=== PATIENT | female | born 1985 | race Caucasian/White ===

== ENCOUNTER 2019-07-17 15:50 | Outpatient (CLI) | payer MEDICAID ==
[~2019-07-17] VITALS: Ht 157 cm; Wt 59.0 kg
[~2019-07-17 15:50] MED LIST: ACHD5005 PO; ACYC800T PO; CETI10CA PO; CODE-54 PO; D50KC PO; DCS100C PO; DEXL60CA PO; DIVA125T2 PO; DULO60CA6 PO; FERR-57 PO; HYDR-3730 PO; IBP600T1 PO; LANS15CA PO; LANS30CA PO; LEVO750T24 PO; LO/OVRAL; METR500T PO; ONDA-43 PO; PANT40SU PO; PREG25CA PO; PREG75CA PO; PREN1TAB19 PO; PRM25T PO; SMT80CT PO; SUCR1TAB36 PO; TMZP15C PO; TOPI15CA6 PO
[2019-07-17 16:00] VITALS: BP 110/72
[2019-07-17] MEDS ORDERED: NS IV 1000 ML 1,000 ML ONE (16:08)
[2019-07-17] MEDS ORDERED: NS IV 1000 ML 1,000 ML IV ONE (16:15)
[2019-07-17] MEDS ORDERED: DIPHENOXYLATE/ATROPINE 2.5MG/0.025MG (LOMOTIL) TAB PO NR (16:30)
[2019-07-17] MEDS ORDERED: metroNIDAZOLE 500 MG/100 ML IVPB (PRE-MIX) IV ONE (16:30)
[2019-07-17] MEDS ORDERED: NS IV 1000 ML 1,000 ML IV SCH (16:30)
[2019-07-17 16:42] LABS: BUN/CREATININE RATIO 7; CALCIUM 8.9 MG/DL (8.5-10.1); CARBON DIOXIDE 18 MMOL/L (21-32); CHLORIDE 109 MMOL/L (98-107); CREATININE SERUM 0.82 MG/DL (0.60-1.30); GFR ESTIMATED > 60; GLUCOSE 107 MG/DL (70-105); POTASSIUM 3.2 MMOL/L (3.6-5.0); SODIUM 137 MMOL/L (135-145)
[2019-07-17 18:45] VITALS: BP 110/72
== END 2019-07-17 18:50 | disposition home or self-care (01) ==
LOC: SDC 15:50
PROVIDERS: ATTEND Nurse Practitioner Family
DX: R19.7 Diarrhea, unspecified (principal)
CPT/HCPCS: 36415; 80048; 83735; 96361; 96365

== ENCOUNTER → 2019-12-19 | Outpatient (CLI) | payer MEDICAID ==
--- NOTE | 2019-12-19 14:05 | Diagnostic Imaging Report ---
EXAMINATION: Chest 2 view HISTORY: Cough. Shortness of breath. Congestion for one week. COMPARISON: Chest radiograph on 03/09/2014. FINDINGS: The lung volumes are normal. No focal consolidation is seen. Scarring/atelectasis is seen in the left lung base. No large pleural effusion or pneumothorax is seen. The cardiomediastinal silhouette is normal in size and contour. No acute osseous abnormality is seen. IMPRESSION: 1. Small amount of scarring/atelectasis in the left lung base. No focal consolidations. Dictated by: Dictated on workstation # [id number]
== END ==
LOC: RAD 11:57
PROVIDERS: ATTEND Nurse Practitioner Family
DX: R05 Cough (principal); R06.00 Dyspnea, unspecified; R06.02 Shortness of breath
CPT/HCPCS: 71046

== ENCOUNTER 2022-07-03 13:37 | Emergency (ER) | payer MEDICAID ==
[~2022-07-03] VITALS: Ht 157.4 cm; Wt 59.0 kg
[2022-07-03 13:48] VITALS: BP 131/105
[2022-07-03] MEDS ORDERED: PROCHLORPERAZINE 10 MG/2ML INJ (COMPAZINE) IV STA (14:01)
[2022-07-03] MEDS ORDERED: diphenhydrAMINE 50 MG/ML INJ (BENADRYL) IVP STA (14:01)
[2022-07-03] MEDS ORDERED: KETOROLAC 30 MG/ML VIAL IVP STA (14:01)
--- NOTE | 2022-07-03 14:08 | ED Headache ---
General Chief Complaint: Head/Cervical Problems Stated Complaint: VOMITING/NAUSEA/MIGRAINE History of Present Illness Date Seen by Provider: Jul 03, 2022 Time Seen by Provider: 13:50 Initial Comments 36-year-old female presents for 2-day history of migraine with photophobia, nausea and vomiting. She has a history of chronic migraines and has taken Imitrex in the past. She is out of medication at this time and did not try any ojcd-tvw-obstraf medications. Timing/Duration: 24 hours Severity/Quality: moderate Location: frontal Prior Headaches/Recent Trauma: chronic headaches Modifying Factors: improves with rest Associated Symptoms: nausea/vomiting; No nasal congestion, No nasal drainage, No vision changes Allergies and Home Medications Allergies Coded Allergies: latex (Unverified Allergy, Severe, HIVES, 11/09/07) cefaclor (Verified Allergy, Mild, RASH, 09/18/14) doesn't remember, reacted as a child PATIENT STATES CAUSES NAUSEA. meperidine (Unverified Adverse Reaction, Mild, 11/09/07) ABDOMINAL CRAMPING Patient Home Medication List Home Medication List Reviewed: Yes Cetirizine HCl (Zyrtec) 10 Mg Capsule, 10 MG PO DAILY, (Reported) Entered as Reported by: EDITH SOW on 05/27/15 09 Dexlansoprazole (Dexilant) 60 Mg Cap.bp, 60 MG PO DAILY Prescribed by: OPAL WELLS on 05/27/15 1107 Divalproex Sodium (Depakote) 125 Mg Tablet., 125 MG PO DAILY, (Reported) Entered as Reported by: EDITH SOW on 05/27/15 0906 Duloxetine Hcl (Cymbalta) 60 Mg Capsule., 60 MG PO DAILY, (Reported) Entered as Reported by: ABRAN NIX on 10/31/13 0957 Ondansetron (Zofran Oral Dissolve) 8 Mg Tab, 8 MG PO Q6H PRN for NAUSEA/VOMITIN G, (Reported) Entered as Reported by: VADIM GARCIA on 09/11/14 0925 Pantoprazole Sodium (Protonix) 40 Mg Granpkt., 40 MG PO DAILY, (Reported) Entered as Reported by: EDITH SOW on 05/27/15 0906 Pregabalin (Lyrica) 25 Mg Capsule, 25 MG PO TID, (Reported) Entered as Reported by: EDITH SOW on 05/27/15905 Sucralfate (Carafate) 1 Gm Tablet, 1 GM PO QID Prescribed by: OPAL WELLS on 05/27/15 1107 Temazepam (Restoril Capsule) 15 Mg Cap, 15 MG PO HS PRN for SLEEP, (Reported) Entered as Reported by: SHAVONNE FLOYD on 03/05/14 1452 Topiramate (Topamax) 15 Mg Cap.sprink, 15 MG PO DAILY, (Reported) Entered as Reported by: EDITH SOW on 05/27/15905 Review of Systems Review of Systems Constitutional: no symptoms reported, see HPI Psychiatric/Neurological: See HPI, Headache All Other Systems Reviewed Negative Unless Noted: Yes Past Zkucthp-Cbnozx-Evfhma Hx Patient Social History Tobacco Use?: Yes Tobacco type used: Cigarettes Substance use?: Yes Substance type: Marijuana Alcohol Use?: No Immunizations Up To Date Tetanus Booster (TDap): Less than 5yrs PED Vaccines UTD: No Influenza Vaccine Up-to-Date: No; Not Current First/Initial COVID19 Vaccinat: JUST HAD COVID 2 WEEKS AGO 06/09/22, UNVACCINATED Past Medical History Reproductive Disorders: Yes Sexually Transmitted Disease: Yes (herpes) Ulcer Arthritis, Fibromyalgia Family Medical History Reviewed Nursing Family Hx Family history: Hypertension 03 FATHER Headache 09 BROTHER 09 SISTER Kidney disease 03 FATHER No Family History of: Abdominal aortic aneurysm Weakley's disease Alcoholism Aphasia Cancer Cancer of colon Cataract Chest pain Congenital heart disease Congestive heart failure Cystic fibrosis Dementia Dysphagia Family history: Allergy Family history: Alzheimer's disease Family history: Arthritis Family history: Asthma Family history: Breast disease Family history: Cardiovascular disease Family history: Coronary thrombosis Family history: Diabetes mellitus Family history: Gastrointestinal disease Family history: Glaucoma Family history: Osteoporosis Family history: Thyroid disorder Hearing loss Heart disease Hereditary disease History of - anemia History of - disorder History of - respiratory disease History of drug abuse Human immunodeficiency virus (HIV) seropositivity Hypercholesterolemia Infertile Malignant neoplasm of lung Myocardial infarction Parkinson's disease Prostate cancer Psychotic disorder Seizure disorder Stroke Tuberculosis Visual impairment Physical Exam Vital Signs Vital Signs - First Documented 07/03/22 13:48 Temp 35.7 Pulse 84 Resp 18 B/P (MAP) 131/105 (114) Pulse Ox 100 O2 Delivery Room Air Capillary Refill : Height, Weight, BMI Height: 5'2.00" Weight: 140lbs. 0.0oz. [id number]; BMI Method:Stated General Appearance: WD/WN, mild distress (secondary to pain) HEENT: PERRL/EOMI, normal ENT inspection, TMs normal, pharynx normal, photophobia Neck: non-tender, full range of motion, supple, normal inspection Cardiovascular: normal peripheral pulses, regular rate, rhythm Respiratory: chest non-tender, lungs clear, normal breath sounds Gastrointestinal: normal bowel sounds, non tender, soft Psychiatric: alert, oriented x 3 Coordination/Gait: normal finger to nose, normal gait Skin: normal color, warm/dry Progress/Results/Core Measures Results/Orders My Orders Orders - RADHA VERGARA Ed Iv/Invasive Line Start (07/03/22 14:01) Ns Iv 1000 Ml (Sodium Chloride 0.9%) (07/03/22 14:15) Prochlorperazine Injection (Compazine In (07/03/22 14:01) Diphenhydramine Injection (Benadryl Inje (07/03/22 14:01) Ketorolac Injection (Toradol Injection) (07/03/22 14:01) Vital Signs/I&O 07/03/22 13:48 Temp 35.7 Pulse 84 Resp 18 B/P (MAP) 131/105 (114) Pulse Ox 100 O2 Delivery Room Air Progress Progress Note : Time: 13:50 Progress Note Patient seen and evaluated, will give normal saline 1 L per IV,, Compazine, Toradol, and Benadryl. 1425 patient has been resting in a dark room, she reports improvement in her symptoms, no further vomiting. We will let IV fluids continue infusing and plan discharge after that. Discharge instructions and return precautions reviewed Departure Impression Primary Impression: Migraine Qualified Codes: G43.009 - Migraine without aura, not intractable, without status migrainosus Disposition: HOME, SELF-CARE Condition: Improved Departure-Patient Inst. Decision time for Depature: 14:25 Referrals: TD COLLAZO DO (PCP/Family) Primary Care Physician Patient Instructions: Migraines (DC) Add. Discharge Instructions: Establish appointment and follow-up at [facility] to keep all medications refilled properly. Alternate between Excedrin and ibuprofen as needed for headaches until you get medications refilled. Increase water intake. Return to the emergency department for new, urgent healthcare needs. All discharge instructions reviewed with patient and/or family. Voiced understanding. RADHA VERGARA Jul 03, 2022 14:08
[2022-07-03] MEDS ORDERED: NS IV 1000 ML 1,000 ML IV SCH (14:15)
== END 2022-07-03 14:55 | disposition home or self-care (01) ==
LOC: EDUNIT# 13:37 → ER 13:41
DX: G43.909 Migraine, unspecified, not intractable, without status migrainosus (principal); F17.210 Nicotine dependence, cigarettes, uncomplicated; Z91.040 Latex allergy status; Z91.14 Patient's other noncompliance with medication regimen; Z28.310 Unvaccinated for COVID-19